=== PATIENT | female | born 1945 | race Caucasian/White ===

== ENCOUNTER 2016-11-12 12:49 | Observation (INO) ==
[2016-11-12] MEDS ORDERED: NITROGLYCERIN 2% OINT 1 INCH/GM PACK TOP STA (13:07)
[2016-11-12] MEDS ORDERED: METOPROLOL TARTRATE 5 MG/5 ML VIAL IV STA (13:07)
[2016-11-12] MEDS ORDERED: ASPIRIN 325 MG TABLET PO STA (13:07)
--- NOTE | 2016-11-12 13:11 | EKG Report ---
Stationary ECG Study [facility] ER Test Date: 11/12/2016 12:57:18 PM Pat Name: KARAN HSU Department: Room: Gender: F Die Turner: : 1945 Requested by: Piero Kyle Order Number: [id number] Reading MD: GHULAM CARMONA Intervals [place] Rate: 110 P: 999 IA: 0 QRS: 16 QRSD: 74 T: 55 QT: 322 QTc: 387 Interpretive Statements SUPRAVENTRICULAR TACHYCARDIA LOW QRS VOLTAGE IN CHEST LEADS ABNORMAL RHYTHM ECG Electronically Signed On 11-13-16 07:11:04 CDT by GHULAM CARMONA [id number]
--- NOTE | 2016-11-12 13:15 | Emergency Department Note ---
Giovana Steen Mantricia, am scribing for, and in the presence of, Piero Triana MD 13:11. Kamilah Steen James D, MD, personally performed the services described in this documentation, ascribed by Kenyetta Akhtar in my presence, and it is both accurate and complete 314 . Arrival - Arrival Chief Complaint: Chest Pain Stated Complaint: chest discomfort - palpitations ED Nursing Triage Note: C/O CHEST DISCOMFORT FOR DHARA ONE WEEK AGO, WORSERNING IN LAST COUPLE OF DAYS Mode of Arrival: Ambulatory Limitations: No Limitations Source: Patient Time Seen by Provider: 11/12/16 13:02 - History of Present Illness HPI Narrative: Pt is a 71 y/o female arriving to ED with c/o chest pain that onset 2 weeks ago. She states that she thinks anxiety brings on the pain. She also states that she has been diaphoretic and SOB along with abdominal pain and chills. Pt has a PMHx of HTN. She re[orts no other complaints to ED. Onset (ago): week(s) Consistency: constant Date of Last Menstrual Period: HYST Allergies/Adverse Reactions: Allergies Allergy/AdvReac Type Severity Reaction Status Date / Time latex Allergy HIVES Verified 11/23/15 10:32 prednisone Allergy RASH Verified 06/28/15 13:10 codeine AdvReac Palpitation Verified 06/28/15 13:10 s diphenhydramine AdvReac Palpitation Verified 06/28/15 13:10 [From Benadryl] s prochlorperazine AdvReac Palpitation Verified 06/28/15 13:10 [From Compazine] s propoxyphene [From Darvon] AdvReac Palpitation Verified 06/28/15 13:10 s Sulfa (Sulfonamide AdvReac BLISTER Verified 06/28/15 13:10 Antibiotics) Home Medications: Home Medications Medication Instructions Recorded Confirmed Type Metoprolol Tartrate Tab [Lopressor 25 mg PO TID 01/06/15 11/12/16 History Tab] Clorazepate Dipotassium 7.5 mg PO BID PRN 11/12/16 11/12/16 History Review of System - Review of System 12 point system: reviewed and no additional remarkable complaints except as stated - Review of System Constitutional: Present: chills, diaphoresis. Absent: fever Eyes: Absent: discharge, pain Cardiovascular: Present: chest pain, dyspnea on exertion Gastrointestinal: Present: abdominal pain. Absent: nausea, vomiting, diarrhea Musculoskeletal: Absent: arm pain, back pain, leg pain, neck pain Medical,Surgical,& Family Hx - Medical History Cardio: History of: Hypertension No history of: CAD, OR Neurology: History of: Migraine Rheumatology: History of;: Rheumatological Problems (psoriatic arthritis) Respiratory: History of: Pulmonary Embolism Gastrointestinal: History of: GERD Musculoskeletal: History of: Musculoskeletal Problems (arthritis) - Surgical History Cardiac Surgeries: Sugical HX of: Cardiac Catheterization (2014. Normal.) - Family History Family History: Reports;: Family Heart Disease Denies;: Family Cancer, Family Diabetes, Family Hypertension, Family Psychiatric Problems, Family Stroke - Social History Smoking Status: Never smoker Frequency of Alcohol Use: None Type of Drug Use: None Exam Physical Examination: GENERAL: This is a well-nourished, well-developed female in no apparent distress. VITAL SIGNS: HEENT: Head is normocephalic and atraumatic. Pupils are equally round and reactive to light. Extraocular movement are intact. Oropharynx is benign with moist mucous membranes. NECK: Neck is soft and supple without tenderness. There are no masses. There is no lymphadenopathy. LUNGS: Lungs are clear to auscultation bilaterally. Chest rises symmetrically. There is no chest wall tenderness. CV: Heart is regular rate and rhythm without murmurs, rubs, or gallops. ABDOMEN: Abdomen is soft, non-tender to palpation. There are no abnormal masses palpated. There is no organomegaly. Bowel sounds are present and active. SKIN: Skin is warm and dry. No rash. EXTREMITIES: Patient has full range of motion without tenderness. There is no pedal edema. NEUROLOGIC: Awake, alert, and oriented x4. Cranial nerves II through XII are grossly intact. There are no motorsensory deficits. PSYCHIATRIC: Normal affect. Normal mood. Vital Signs: Vital Signs Temperature 97.2 F L 11/12/16 12:50 Pulse Rate 107 H 11/12/16 12:50 Respiratory Rate 20 11/12/16 12:50 Blood Pressure 146/101 11/12/16 12:50 O2 Sat by Pulse Oximetry 94 L 11/12/16 12:50 Course - Consultations Consultation #1: Discussed with cardiology. Patient will be admitted to rule out OR. Time: 14:17 Results - Labs CBC & BMP: 11/12/16 13:23 11/12/16 13:23 Lab Results: I have reviewed the patients labs Labs: Laboratory Tests 07/12/15 11/12/16 05:49 13:23 Troponin I < 0.015 Lipase 288.0 - EKG EKG results: interpreted by ERMD - Impressions EKG: Sinus tachycardia with a rate of 110, nonspecific ST-T wave changes, low voltage QRS. - Diagnostic Findings Procedure: Chest x-ray: image reviewed by me (No cardiomegaly, no infiltrates.)
[2016-11-12 13:31] LABS: Basophils # 0.1 10*3/uL (0.0-0.2); Basophils % 0.5 % (0.0-0.8); Eosinophils # 0.1 10*3/uL (0.0-0.87); Eosinophils % 1.2 % (0.00-10.9); Hematocrit 44.9 VOL% (35.7-47.0); Hemoglobin 15.2 GM/DL (12.0-16.0); Immature Granulocytes % 0.3 %; Immature Granulocytes Absolute 0.03 #; Lymphocytes # 2.9 10*3/uL (1.4-4.0); Lymphocytes % 28.7 % (21.3-54.2); Mean Corpuscular HGB Conc 33.9 GM/DL (32-36); Mean Corpuscular Hemoglobin 32 PG (27-34); Mean Corpuscular Volume 94.7 FL (87-102); Mean Platelet Volume 10.2 FL (9.6-12.0); Monocytes # 0.7 10*3/uL (0.11-0.8); Monocytes % 6.7 % (1.7-12.7); Neutrophils # 6.4 10*3/uL (1.4-7.4); Neutrophils % 62.6 % (38.7-73.9); Platelet Count 243 T/CUMM (130-400); Red Blood Count 4.74 MC/CUMM (3.8-5.5); Red Cell Distribution Width 12.2 % (9.3-17.3); White Blood Count 10.2 T/CUMM (4-12)
[2016-11-12] MEDS ORDERED: METOPROLOL TARTRATE 5 MG/5 ML VIAL IV ONE (13:39)
[2016-11-12] MEDS ORDERED: ASPIRIN 325 MG TABLET ONE (13:39)
[2016-11-12] MEDS ORDERED: NITROGLYCERIN 2% OINT 1 INCH/GM PACK TOP ONE (13:39)
[2016-11-12 13:40] LABS: Partial Thromboplastin Time 30.1 SECS (0-40)
--- NOTE | 2016-11-12 13:56 | XRay Report ---
XR chest 2V Date: 11/12/2016 1:08 PM History: Chest pain Comparison: 06/30/2015 Technique: PA and lateral chest Findings: The heart is normal in size with calcification in the aortic knob. 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 Stable mediastinum and osseous structures. Impression: No acute cardiopulmonary pathology identified. PROCEDURE INTERPRETED AT [facility] DEPARTMENT OF RADIOLOGY Final Report Signed by: Dr. Martha Dave
[2016-11-12 14:07] LABS: Albumin 3.9 G/DL (3.4-5.0); Bilirubin,Total 0.5 MG/DL (0.2-1.0); Calcium 9.6 MG/DL (8.5-10.1); Osmolality,Calculated 285.1 MOS/KG (273-304); Potassium 4.4 MMOL/L (3.5-5.1); Total Protein 7.8 G/DL (6.4-8.3)
[2016-11-12 14:34] LABS: Apearance,Urine CLEAR (Clear); Bacteria,Urine Occasional /HPF (Few); Bilirubin,Urine Negative (Negative); Blood, Urine Negative (Negative); Glucose,Urine (UA) Negative (Negative); Ketones,Urine Negative (Negative); Mucus,Urine Few /LPF (Occasional); Nitrite,Urine Negative (Negative); Protein,Urine Negative; RBC,Urine 3 /HPF (0-4); Squamous Epithelial Cell,Urine Occasional /HPF (0-10); Urine Color Yellow (Yellow); Urine Urobilinogen < 2.0 EU/DL (0.2-1.0); WBC,Urine 26 /HPF (0-6)
[2016-11-12 14:38] LABS: Barbiturates Screen,Urine Negative (Negative); Benzodiazepines Screen,Urine Negative (Negative); Cannabinoid Screen,Urine Negative (Negative); Opiate Screen,Urine Negative (Negative); Phencyclidine Screen,Urine Negative (Negative)
--- NOTE | 2016-11-12 15:37 | Cardiology History & Physical ---
<Denise France - Last Filed: 11/12/16 16:33> Assessment and Plan - Time spent with patient Time spent with patient: Greater than 30 minutes (1) Atypical chest pain Status: Acute Assessment and plan: SEE PLAN OF CARE LISTED BELOW Current Visit: Yes (2) Palpitations Status: Acute Assessment and plan: SEE PLAN OF CARE LISTED BELOW Current Visit: Yes (3) Abdominal pain Status: Acute Assessment and plan: SEE PLAN OF CARE LISTED BELOW Current Visit: Yes (4) History of pulmonary embolus (PE) Status: Chronic Assessment and plan: SEE PLAN OF CARE LISTED BELOW Current Visit: No (5) Hypertension Status: Chronic Assessment and plan: SEE PLAN OF CARE LISTED BELOW Current Visit: Yes (6) UTI (urinary tract infection) Status: Acute Assessment and plan: SEE PLAN OF CARE LISTED BELOW Current Visit: Yes History of Present Illness Chief complaint: Chest discomfort 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 Lopez Ms. Holland is a 71 year old female without known history of coronary artery disease, routinely followed by Dr. Tanya Lane. Patient presented to the emergency department with complaints of palpitations and midsternal chest discomfort. Patient has cardiac risk factors significant for hypertension, advanced age, sedentary lifestyle and family history of coronary artery disease and (mother). Patient has past medical history of palpitations, pulmonary embolism and DVT. In the past, she was anticoagulated with warfarin. However, this has been discontinued now for 3 years. She is a lifetime non-smoker. She reports that she has had 2 heart catheterizations in the past. Her most recent heart catheterization was performed November 2013. At that time she had angiographically normal left dominant coronary arteries, normal resting hemodynamics with mild pulmonary hypertension. She last followed up in the cardiology clinic April 2016. At that time she was without complaints. Patient was in her usual state of health until approximately 2 weeks ago when she began experiencing mild chest discomfort. She describes this as a mild midsternal gnawing/aching pain. Nonradiating. This is not associated with shortness of breath, diaphoresis or vomiting. Patient reports that this has been ongoing now for 2 weeks, waxing and waning in intensity. She reports that chest discomfort worsens after meals. Associated with mild nausea. She denies any exertional component to her chest discomfort. Unable to identify any other specific alleviating or aggravating factors. She denies any significant change in her breathing pattern. Denies dyspnea on exertion as well as exercise intolerance. She confirms heart racing and palpitations that began yesterday. She tells me that she has had problems with palpitations for several years. She takes a beta-quique at home for this. Currently, she takes metoprolol tartrate 25 mg every a.m. and 37.5 mg every p.m. She has been compliant with this. This morning, she felt that she should be further evaluated in the emergency department. Upon arrival to the emergency department, she received nitroglycerin. She reports that this did not help relieve her chest discomfort. Patient has now been admitted under cardiology's service and will be housed on the telemetry unit. We will cycle cardiac biomarkers and EKGs in order to rule patient out for [place]. Of note, she also reports right-sided abdominal pain and mild nausea that occurs after meals. She tells me that she has had gallbladder problems in the remote past and has been seen by Dr. Donovan. She has been told by Dr. Donovan that she has a borderline gallbladder and may require cholecystectomy in the future. At this point, I will add PPI and order gallbladder ultrasound in order to reevaluate patient's gallbladder status. This may be contributing to both abdominal and her atypical chest pain. Patient was seen and examined in the emergency department. Upon arrival to the emergency department, EKG revealed sinus tachycardia with heart rate of 110. She received metoprolol IV in the emergency department patient is now normal sinus rhythm with heart rates in the 70s. First troponin was negative. EKG does not reveal any ischemic changes. Chest x-ray did not reveal any acute cardiopulmonary processes. At this point, we will admit patient to the telemetry unit for rule out. We will monitor patient's cardiac biomarkers and EKGs. Will further discuss with Dr. Muller and await his recommendations. ASSESSMENT/PLAN : 1. ATYPICAL CHEST PAIN - Patient's chest pain is very atypical in nature. Patient does not have known history of coronary artery disease. Do not feel as though this is ACS. Although patient has had ongoing chest pain for 2 weeks, cardiac biomarkers are negative. EKG does not reveal any ischemic changes. At this point, we will admit patient to the telemetry unit and cycle cardiac biomarkers and EKG. I will also add gi cocktail, baby aspirin and PPI. I will further discuss this with Dr. Muller and await his recommendations. 2. HYPERTENSION - I will reinitiate patient's home medications and make adjustments as needed throughout her hospitalization. 3. UTI - Urinalysis reveals acute UTI. Urine culture has been ordered. I will add Cipro. 4. ABDOMINAL PAIN - She reports that she has mild abdominal pain associated with nausea after meals. She tells me that she has had gallbladder problems in the remote past and has been seen by Dr. Donovan. She has been told by Dr. Donovan that she has a borderline gallbladder and may require cholecystectomy in the future. At this point, I will add PPI and order gallbladder ultrasound in order to reevaluate patient's gallbladder status. This may be contributing to both abdominal and her atypical chest pain. 5. PALPITATIONS - Upon arrival to emergency department, patient EKG revealed sinus tachycardia with heart rate of 110. She received metoprolol IV in the emergency department and patient is now in normal sinus rhythm with heart rates in the 70s. At this point, we will admit patient to the telemetry unit and monitor her on the range master. Continue beta-blockade and adjust as needed throughout her hospital stay. Will add TSH to her lab draw. Check electrolytes. 6. HISTORY OF PE - Patient is without complaints of shortness of breath this admission. We will add d-dimer to lab draw. She reports that her Coumadin was discontinued approximately 3 years ago. Further plan and addendum to follow per Dr. Muller. Home Medications Medication Instructions Recorded Confirmed Type Metoprolol Tartrate Tab [Lopressor 25 mg PO DAILY W/BREAKFAST 01/06/15 11/12/16 History Tab] Clorazepate Dipotassium 7.5 mg PO BID PRN 11/12/16 11/12/16 History Metoprolol Tartrate 37.5 mg PO BEDTIME 11/12/16 11/12/16 History Allergies Allergy/AdvReac Type Severity Reaction Status Date / Time latex Allergy HIVES Verified 11/23/15 10:32 prednisone Allergy RASH Verified 06/28/15 13:10 codeine AdvReac Palpitation Verified 06/28/15 13:10 s diphenhydramine AdvReac Palpitation Verified 06/28/15 13:10 [From Benadryl] s prochlorperazine AdvReac Palpitation Verified 06/28/15 13:10 [From Compazine] s propoxyphene [From Darvon] AdvReac Palpitation Verified 06/28/15 13:10 s Sulfa (Sulfonamide AdvReac BLISTER Verified 06/28/15 13:10 Antibiotics) - Constitutional Constitutional: Present: fatigue. Absent: chills, fever(s), frequent falls, weakness, weight gain, weight loss - Cardiovascular Cardiovascular: Present: chest pain at rest, palpitations. Absent: claudication , diaphoresis, dyspnea, dyspnea on exertion, edema, radiating jaw, neck or arm pain, lightheadedness, orthopnea, PND - Respiratory Respiratory: Absent: cough, dyspnea, hemoptysis, dyspnea on exertion, wheezing, snoring, pain on inspiration, change in phlegm color - Gastrointestinal Gastrointestinal: Present: abdominal pain, bloating, dyspepsia, nausea. Absent : coffee ground emesis, constipation, hematemesis, hematochezia, loose stools, melena, vomiting - Genitourinary Genitourinary: Present: dysuria, flank pain - Endocrine Endocrine: Present: cold intolerance, fatigue Medical,Surgical,& Family Hx - Medical History Cardio: History of: Hypertension, Cardiovascular Problems (Palpitations) No history of: CAD, [place] Neurology: History of: Migraine Rheumatology: History of;: Rheumatological Problems (psoriatic arthritis) Respiratory: History of: Pulmonary Embolism Gastrointestinal: History of: GERD Musculoskeletal: History of: Musculoskeletal Problems (arthritis) Other: History of: Miscellaneous Medical Problems (DVT) - Surgical History Cardiac Surgeries: Sugical HX of: Cardiac Catheterization (2014. Normal.) - Family History Family History: Reports;: Family Heart Disease Denies;: Family Cancer, Family Diabetes, Family Hypertension, Family Psychiatric Problems, Family Stroke - Social History Smoking Status: Never smoker Frequency of Alcohol Use: None Type of Drug Use: None Marital Status: Lives With:: Spouse Functional capacity: independent ambulation Cardiology Physical Exam - Constitutional Vitals: Vital Signs Temp Pulse Resp BP Pulse Ox 97.2 F L 107 H 20 146/101 94 L 11/12/16 12:50 11/12/16 12:50 11/12/16 12:50 11/12/16 12:50 11/12/16 12:50 Intake and Output 11/11/16 11/12/16 11/12/16 22:59 06:59 14:59 Other: Weight 170 lb Patient Weight 11/13/16 06:59 Weight 170 lb Exam: General: Appears well with no apparent distress. Pleasant and cooperative. Appears comfortable. HEENT: PERRL, normocephalic, atraumatic. Mucous membranes moist. No jaundice noted. Conjunctiva moist and clear, sclerae anicteric Neck: No JVD/HJR, no thyromegaly or lymphadenopathy noted. No carotid bruit appreciated Cardiac: Regular rate and rhythm. No murmur rub or gallop. Lungs: Clear to auscultation without accessory muscle use to assist the respiratory pattern. Not requiring oxygen. Abdomen: Soft, bowel sounds normoactive. Nontender and nondistended. No abdominal bruit or thrill noted. No masses noted. Extremities: No clubbing, cyanosis noted. No edema noted. Upper extremity pulses 2+. Lower extremity pulses 2+. Capillary refill less than 3 seconds. Skin: No unusual lesions or rashes. No skin breakdown appreciated. Neuro: Awake, alert and oriented 3. Moves all extremities well without hemiparesis or paralysis. No essential tremor is appreciated. Result/EKG - Labs CBC & BMP: 11/12/16 13:23 11/12/16 13:23 Lab Results: I have reviewed the past 24 hour labs Labs: Laboratory Results - last 24 hr 11/12/16 11/12/16 11/12/16 13:23 13:23 13:23 WBC 10.2 RBC 4.74 Hgb 15.2 Hct 44.9 MCV 94.7 MCH 32 MCHC 33.9 RDW 12.2 Plt Count 243 MPV 10.2 Neut % (Auto) 62.6 Lymph % (Auto) 28.7 Harris % (Auto) 6.7 Eos % (Auto) 1.2 Baso % (Auto) 0.5 Neut # (Auto) 6.4 Lymph # (Auto) 2.9 Harris # (Auto) 0.7 Eos # (Auto) 0.1 Baso # (Auto) 0.1 Immature Gran % 0.3 Nucleated RBC % 0.0 Immature Gran # 0.03 Nucleated RBCs # 0.00 INR 1.0 PT Patient/Control Mix 10.0 Circ Anticoag PTT 30.1 Sodium 142 Potassium 4.4 Chloride 105 Carbon Dioxide 30 Anion Gap 11.4 BUN 18 Creatinine 0.90 GFR Calculation 72 BUN/Creatinine Ratio 20.00 Glucose 115 H Calculated Osmolality 285.1 Calcium 9.6 Total Bilirubin 0.50 AST 21 ALT 27 Alkaline Phosphatase 143 H Troponin I Total Protein 7.8 Albumin 3.9 Globulin 3.9 H Albumin/Globulin Ratio 1.0 L Lipase 289.0 Urine Color Urine Appearance Urine pH Ur Specific [place] Urine Protein Urine Glucose (UA) Urine Ketones Urine Blood Urine Nitrate Urine Bilirubin Urine Urobilinogen Urine Leukocytes Urine RBC Urine WBC Ur Squamous Epith Cells Urine Bacteria Urine Mucus Ur Culture Indicated? Urine Opiates Screen Ur Barbiturates Screen Ur Phencyclidine Scrn U Amphetamine/Methamph U Benzodiazepines Scrn U Cocaine Metab Screen U Cannabinoids Screen 11/12/16 11/12/16 11/12/16 13:23 14:28 14:28 WBC RBC Hgb Hct MCV MCH MCHC RDW Plt Count MPV Neut % (Auto) Lymph % (Auto) Harris % (Auto) Eos % (Auto) Baso % (Auto) Neut # (Auto) Lymph # (Auto) Harris # (Auto) Eos # (Auto) Baso # (Auto) Immature Gran % Nucleated RBC % Immature Gran # Nucleated RBCs # INR PT Patient/Control Mix Circ Anticoag PTT Sodium Potassium Chloride Carbon Dioxide Anion Gap BUN Creatinine GFR Calculation BUN/Creatinine Ratio Glucose Calculated Osmolality Calcium Total Bilirubin AST ALT Alkaline Phosphatase Troponin I < 0.015 Total Protein Albumin Globulin Albumin/Globulin Ratio Lipase Urine Color Yellow Urine Appearance Clear Urine pH 5.0 Ur Specific [place] 1.020 Urine Protein Negative Urine Glucose (UA) Negative Urine Ketones Negative Urine Blood Negative Urine Nitrate Negative Urine Bilirubin Negative Urine Urobilinogen < 2.0 H Urine Leukocytes Large H Urine RBC 3 Urine WBC 26 Ur Squamous Epith Cells Occasional Urine Bacteria Occasional Urine Mucus Few Ur Culture Indicated? Results to follow Urine Opiates Screen Negative Ur Barbiturates Screen Negative Ur Phencyclidine Scrn Negative U Amphetamine/Methamph Negative U Benzodiazepines Scrn Negative U Cocaine Metab Screen Negative U Cannabinoids Screen Negative - EKG EKG results: interpreted by me, sinus rhythm EKG shows: tachycardia <Rodney Muller - Last Filed: 11/13/16 10:24> History of Present Illness History of present illness: Ms. Holland is a 71 year old female Cardiology Physical Exam - Constitutional Vitals: Vital Signs Temp Pulse Resp BP Pulse Ox 98.0 F 74 18 123/68 95 11/13/16 07:29 11/13/16 07:29 11/13/16 07:29 11/13/16 07:29 11/13/16 07:29 Intake and Output 11/12/16 11/13/16 11/13/16 23:59 07:59 15:59 Intake Total 240 / 240 Output Total 300 / 300 Balance -60 / -60 Intake: Oral 240 / 240 Output: Urine 300 / 300 Other: # Voids 2 Weight 77.111 kg 77.111 kg Patient Weight 11/13/16 23:59 Weight 77.111 kg Result/EKG - Labs CBC & BMP: 11/13/16 01:01 11/13/16 01:01 Labs: Laboratory Results - last 24 hr 11/12/16 11/12/16 11/12/16 13:23 13:23 13:23 WBC 10.2 RBC 4.74 Hgb 15.2 Hct 44.9 MCV 94.7 MCH 32 MCHC 33.9 RDW 12.2 Plt Count 243 MPV 10.2 Neut % (Auto) 62.6 Lymph % (Auto) 28.7 Harris % (Auto) 6.7 Eos % (Auto) 1.2 Baso % (Auto) 0.5 Neut # (Auto) 6.4 Lymph # (Auto) 2.9 Harris # (Auto) 0.7 Eos # (Auto) 0.1 Baso # (Auto) 0.1 Immature Gran % 0.3 Nucleated RBC % 0.0 Immature Gran # 0.03 Nucleated RBCs # 0.00 INR 1.0 PT Patient/Control Mix 10.0 D-Dimer, Quantitative Circ Anticoag PTT 30.1 Sodium 142 Potassium 4.4 Chloride 105 Carbon Dioxide 30 Anion Gap 11.4 BUN 18 Creatinine 0.90 GFR Calculation 72 BUN/Creatinine Ratio 20.00 Glucose 115 H Calculated Osmolality 285.1 Calcium 9.6 Magnesium Total Bilirubin 0.50 AST 21 ALT 27 Alkaline Phosphatase 143 H Total Creatine Kinase CK-MB (CK-2) Troponin I Total Protein 7.8 Albumin 3.9 Globulin 3.9 H Albumin/Globulin Ratio 1.0 L Triglycerides Cholesterol LDL Cholesterol VLDL Cholesterol HDL Cholesterol Heart Disease Risk Ratio Lipase 289.0 TSH 3rd Generation Urine Color Urine Appearance Urine pH Ur Specific [place] Urine Protein Urine Glucose (UA) Urine Ketones Urine Blood Urine Nitrate Urine Bilirubin Urine Urobilinogen Urine Leukocytes Urine RBC Urine WBC Ur Squamous Epith Cells Urine Bacteria Urine Mucus Ur Culture Indicated? Urine Opiates Screen Ur Barbiturates Screen Ur Phencyclidine Scrn U Amphetamine/Methamph U Benzodiazepines Scrn U Cocaine Metab Screen U Cannabinoids Screen 11/12/16 11/12/16 11/12/16 13:23 13:23 13:23 WBC RBC Hgb Hct MCV MCH MCHC RDW Plt Count MPV Neut % (Auto) Lymph % (Auto) Harris % (Auto) Eos % (Auto) Baso % (Auto) Neut # (Auto) Lymph # (Auto) Harris # (Auto) Eos # (Auto) Baso # (Auto) Immature Gran % Nucleated RBC % Immature Gran # Nucleated RBCs # INR PT Patient/Control Mix D-Dimer, Quantitative 0.6 Circ Anticoag PTT Sodium Potassium Chloride Carbon Dioxide Anion Gap BUN Creatinine GFR Calculation BUN/Creatinine Ratio Glucose Calculated Osmolality Calcium Magnesium Total Bilirubin AST ALT Alkaline Phosphatase Total Creatine Kinase CK-MB (CK-2) Troponin I < 0.015 Total Protein Albumin Globulin Albumin/Globulin Ratio Triglycerides Cholesterol LDL Cholesterol VLDL Cholesterol HDL Cholesterol Heart Disease Risk Ratio Lipase TSH 3rd Generation 1.810 Urine Color Urine Appearance Urine pH Ur Specific [place] Urine Protein Urine Glucose (UA) Urine Ketones Urine Blood Urine Nitrate Urine Bilirubin Urine Urobilinogen Urine Leukocytes Urine RBC Urine WBC Ur Squamous Epith Cells Urine Bacteria Urine Mucus Ur Culture Indicated? Urine Opiates Screen Ur Barbiturates Screen Ur Phencyclidine Scrn U Amphetamine/Methamph U Benzodiazepines Scrn U Cocaine Metab Screen U Cannabinoids Screen 11/12/16 11/12/16 11/12/16 14:28 14:28 18:45 WBC RBC Hgb Hct MCV MCH MCHC RDW Plt Count MPV Neut % (Auto) Lymph % (Auto) Harris % (Auto) Eos % (Auto) Baso % (Auto) Neut # (Auto) Lymph # (Auto) Harris # (Auto) Eos # (Auto) Baso # (Auto) Immature Gran % Nucleated RBC % Immature Gran # Nucleated RBCs # INR PT Patient/Control Mix D-Dimer, Quantitative Circ Anticoag PTT Sodium Potassium Chloride Carbon Dioxide Anion Gap BUN Creatinine GFR Calculation BUN/Creatinine Ratio Glucose Calculated Osmolality Calcium Magnesium Total Bilirubin AST ALT Alkaline Phosphatase Total Creatine Kinase 80 CK-MB (CK-2) 1.3 Troponin I 0.016 Total Protein Albumin Globulin Albumin/Globulin Ratio Triglycerides Cholesterol LDL Cholesterol VLDL Cholesterol HDL Cholesterol Heart Disease Risk Ratio Lipase TSH 3rd Generation Urine Color Yellow Urine Appearance Clear Urine pH 5.0 Ur Specific [place] 1.020 Urine Protein Negative Urine Glucose (UA) Negative Urine Ketones Negative Urine Blood Negative Urine Nitrate Negative Urine Bilirubin Negative Urine Urobilinogen < 2.0 H Urine Leukocytes Large H Urine RBC 3 Urine WBC 26 Ur Squamous Epith Cells Occasional Urine Bacteria Occasional Urine Mucus Few Ur Culture Indicated? Results to follow Urine Opiates Screen Negative Ur Barbiturates Screen Negative Ur Phencyclidine Scrn Negative U Amphetamine/Methamph Negative U Benzodiazepines Scrn Negative U Cocaine Metab Screen Negative U Cannabinoids Screen Negative 11/13/16 11/13/16 11/13/16 01:01 01:01 01:01 WBC 8.8 RBC 4.11 Hgb 13.2 D Hct 39.2 MCV 95.4 MCH 32 MCHC 33.7 RDW 12.5 Plt Count 201 MPV 10.7 Neut % (Auto) 51.7 Lymph % (Auto) 36.4 Harris % (Auto) 8.9 Eos % (Auto) 2.0 Baso % (Auto) 0.7 Neut # (Auto) 4.6 Lymph # (Auto) 3.2 Harris # (Auto) 0.8 Eos # (Auto) 0.2 Baso # (Auto) 0.1 Immature Gran % 0.3 Nucleated RBC % 0.0 Immature Gran # 0.03 Nucleated RBCs # 0.00 INR PT Patient/Control Mix D-Dimer, Quantitative Circ Anticoag PTT Sodium 144 Potassium 3.9 Chloride 109 H Carbon Dioxide 27 Anion Gap 11.9 BUN 17 Creatinine 0.80 GFR Calculation 83 BUN/Creatinine Ratio 21.00 H Glucose 86 Calculated Osmolality 286.8 Calcium 8.3 L Magnesium 2.2 Total Bilirubin AST ALT Alkaline Phosphatase Total Creatine Kinase 63 D CK-MB (CK-2) 1.1 Troponin I 0.017 Total Protein Albumin Globulin Albumin/Globulin Ratio Triglycerides 112 Cholesterol 166 LDL Cholesterol 101.0 VLDL Cholesterol 22.4 HDL Cholesterol 49 Heart Disease Risk Ratio 3.39 Lipase TSH 3rd Generation Urine Color Urine Appearance Urine pH Ur Specific [place] Urine Protein Urine Glucose (UA) Urine Ketones Urine Blood Urine Nitrate Urine Bilirubin Urine Urobilinogen Urine Leukocytes Urine RBC Urine WBC Ur Squamous Epith Cells Urine Bacteria Urine Mucus Ur Culture Indicated? Urine Opiates Screen Ur Barbiturates Screen Ur Phencyclidine Scrn U Amphetamine/Methamph U Benzodiazepines Scrn U Cocaine Metab Screen U Cannabinoids Screen 06/14/17 03:42 WBC RBC Hgb Hct MCV MCH MCHC RDW Plt Count MPV Neut % (Auto) Lymph % (Auto) Harris % (Auto) Eos % (Auto) Baso % (Auto) Neut # (Auto) Lymph # (Auto) Harris # (Auto) Eos # (Auto) Baso # (Auto) Immature Gran % Nucleated RBC % Immature Gran # Nucleated RBCs # INR PT Patient/Control Mix D-Dimer, Quantitative Circ Anticoag PTT Sodium Potassium Chloride Carbon Dioxide Anion Gap BUN Creatinine GFR Calculation BUN/Creatinine Ratio Glucose Calculated Osmolality Calcium Magnesium Total Bilirubin AST ALT Alkaline Phosphatase Total Creatine Kinase 64 CK-MB (CK-2) 1.4 Troponin I < 0.015 Total Protein Albumin Globulin Albumin/Globulin Ratio Triglycerides Cholesterol LDL Cholesterol VLDL Cholesterol HDL Cholesterol Heart Disease Risk Ratio Lipase TSH 3rd Generation Urine Color Urine Appearance Urine pH Ur Specific [place] Urine Protein Urine Glucose (UA) Urine Ketones Urine Blood Urine Nitrate Urine Bilirubin Urine Urobilinogen Urine Leukocytes Urine RBC Urine WBC Ur Squamous Epith Cells Urine Bacteria Urine Mucus Ur Culture Indicated? Urine Opiates Screen Ur Barbiturates Screen Ur Phencyclidine Scrn U Amphetamine/Methamph U Benzodiazepines Scrn U Cocaine Metab Screen U Cannabinoids Screen
[2016-11-12] MEDS ORDERED: DOCUSATE SODIUM 100 MG CAPSULE PO PRN (16:11)
[2016-11-12] MEDS ORDERED: MAGNESIUM SULF RIDER 4 GM in PREMIX 1 EACH IV PRN (16:11)
[2016-11-12] MEDS ORDERED: MAGNESIUM SULF RIDER 2 GM in PREMIX 1 EACH IV PRN (16:11)
[2016-11-12] MEDS ORDERED: ONDANSETRON 4 MG/2 ML VIAL IV PRN (16:11)
[2016-11-12] MEDS ORDERED: ZALEPLON 5 MG CAPSULE PO PRN (16:11)
--- NOTE | 2016-11-12 16:25 | Ultrasound Report ---
Exam: US gallbladder Date:11/12/2016 3:32 PM Indication: Abdominal pain Comparison: 07/12/2015 Findings: Liver: 13.8 cm. No focal abnormalities. The hepatic and portal veins are patent. Gallbladder: Normal size shape and configuration without stones or sludge or debris or wall thickening CBD: 2.7 mm Pancreas: Poorly visualized Kidneys Right kidney: 11.0 x 5.2 x 4.4 cm. No hydronephrosis perinephric fluid collections or focal mass. Ascites: None Impression: 1. Normal right upper quadrant sonography with obscuration of the pancreas on today's exam Ultrasound images were stored and captured PROCEDURE INTERPRETED AT [facility] DEPARTMENT OF RADIOLOGY Final Report Signed by: Dr. Jermaine Gentile
[2016-11-12] MEDS ORDERED: ALUM/MAG/SIMETH/LIDO VISC 1:1 30 ML BOTTLE PO STA (16:34)
[2016-11-12] MEDS: PANTOPRAZOLE 40 MG TABLET PO SCH (18:17)
[2016-11-12] MEDS: ACETAMINOPHEN 325 MG TABLET PO PRN (19:35)
[2016-11-12 20:14] LABS: Troponin I Only 0.016 NG/ML (0.00-0.045)
[2016-11-12] MEDS: CIPROFLOXACIN 500 MG TABLET PO SCH (20:26)
[2016-11-12] MEDS ORDERED: ENOXAPARIN 40 MG/0.4 ML SYRINGE SUBCUT SCH (21:00)
[2016-11-12] MEDS ORDERED: METOPROLOL TARTRATE 25 MG TABLET PO SCH (21:00)
[2016-11-13 01:30] LABS: Basophils # 0.1 10*3/uL (0.0-0.2); Basophils % 0.7 % (0.0-0.8); Eosinophils # 0.2 10*3/uL (0.0-0.87); Hematocrit 39.2 VOL% (35.7-47.0); Hemoglobin 13.2 GM/DL (12.0-16.0); Immature Granulocytes % 0.3 %; Immature Granulocytes Absolute 0.03 #; Lymphocytes # 3.2 10*3/uL (1.4-4.0); Lymphocytes % 36.4 % (21.3-54.2); Mean Corpuscular HGB Conc 33.7 GM/DL (32-36); Mean Corpuscular Hemoglobin 32 PG (27-34); Mean Corpuscular Volume 95.4 FL (87-102); Mean Platelet Volume 10.7 FL (9.6-12.0); Monocytes # 0.8 10*3/uL (0.11-0.8); Monocytes % 8.9 % (1.7-12.7); Neutrophils # 4.6 10*3/uL (1.4-7.4); Neutrophils % 51.7 % (38.7-73.9); Platelet Count 201 T/CUMM (130-400); Red Blood Count 4.11 MC/CUMM (3.8-5.5); Red Cell Distribution Width 12.5 % (9.3-17.3); White Blood Count 8.8 T/CUMM (4-12)
[2016-11-13 02:28] LABS: Troponin I Only 0.017 NG/ML (0.00-0.045)
[2016-11-13 02:44] LABS: Calcium 8.3 MG/DL (8.5-10.1); Magnesium 2.2 MG/DL (1.8-2.4); Osmolality,Calculated 286.8 MOS/KG (273-304); Potassium 3.9 MMOL/L (3.5-5.1); Risk Ratio 3.39; VLDL CHOLESTEROL 22.4 MG/DL
[2016-11-13 04:47] LABS: Troponin I Only < 0.015 NG/ML (0.00-0.045)
[2016-11-13] MEDS: ACETAMINOPHEN 325 MG TABLET PO PRN (05:24)
--- NOTE | 2016-11-13 07:25 | EKG Report ---
Stationary ECG Study [facility] Test Date: 11/13/2016 7:26:37 AM Pat Name: KARAN HSU Department: Room: 284 Gender: F Tv Technician: : 1945 Requested by: Denise France Order Number: [id number] Reading MD: GHULAM CARMONA Intervals Golden Rate: 65 P: 30 OK: 174 QRS: 32 QRSD: 89 T: 41 QT: 399 QTc: 411 Interpretive Statements SINUS RHYTHM LOW QRS VOLTAGE IN PRECORDIAL LEADS Electronically Signed On 11-13-16 08:15:49 CDT by GHULAM CARMONA [email or web address]
[2016-11-13] MEDS ORDERED: METOPROLOL TARTRATE 25 MG TABLET PO SCH (08:00)
[2016-11-13] MEDS ORDERED: ASPIRIN EC 81 MG TABLET PO SCH (09:00)
[2016-11-13] MEDS: CIPROFLOXACIN 500 MG TABLET PO SCH (09:03)
[2016-11-13] MEDS: PANTOPRAZOLE 40 MG TABLET PO SCH (09:03)
--- NOTE | 2016-11-13 10:19 | Discharge Summary ---
Hospital Course - Hospital Course Hospital Course: Traffic Control Technician: Dr. Lane PCP: Dr. Lopez Ms. Holland is a 71 year old female without a known history of coronary artery disease, routinely followed by Dr. Tanya Lane. Patient has cardiac risk factors significant for hypertension, advanced age, sedentary lifestyle and family history of coronary artery disease and (mother). Patient has past medical history of palpitations, pulmonary embolism and DVT. In the past, she was anticoagulated with warfarin. However, this has been discontinued now for 3 years. She is a lifetime non-smoker. She reports that she has had 2 heart catheterizations in the past. Her most recent heart catheterization was performed November 2013. At that time she had angiographically normal left dominant coronary arteries, normal resting hemodynamics with mild pulmonary hypertension. She last followed up in the cardiology clinic April 2016. At that time she was without complaints. Patient presented to the emergency department with complaints of palpitations and atypical chest pain. Upon arrival to emergency department, she was noted to be in sinus tach with heart rate of 110. She received a one-time dose of IV metoprolol in the emergency department. She was admitted to the telemetry unit in order to rule out for myocardial infarction. Patient's cardiac biomarkers are negative 4. EKG was without acute changes. Patient's symptomology thought to be secondary to mild anxiety as patient reports that she has been under stress. At this point, we will continue patient's Tranxene and add low- dose Zoloft at discharge. Patient also had complaints of abdominal pain, nausea and polyuria/dysuria. Urinalysis revealed UTI, Cipro was initiated. She will be given a prescription for Cipro upon discharge. She had a gallbladder ultrasound this admission which was normal. Telemetry was reviewed. Patient was without arrhythmias and/or PVCs. Palpitations seem to be a chronic problem for her. At this point, we will continue her current dose of beta-quique and defer further management/workup of this to Dr. Lane. Patient may benefit from Holter or event monitor. This morning, patient is without complaints. She reports that she feels much better. She denies chest pain, heaviness and tightness. Also denies heart racing and palpitations. She is anxious for discharge home. Having felt that patient has met maximal medical therapy, she will be discharged home in stable condition. She already has a follow-up appointment scheduled with Dr. Ariana tomorrow, she will keep this appointment. We will discharge patient home on all of her preadmission medications with the addition of Cipro, PPI and Zoloft. Discharge instructions and discharge medications were reviewed with the patient. She verbalized understanding. - Time spent with patient Time with patient DS: Greater than 30 minutes Diagnosis - Discharge Diagnosis (1) Atypical chest pain Status: Resolved (2) Palpitations Status: Chronic (3) Abdominal pain Status: Resolved (4) History of pulmonary embolus (PE) Status: Chronic (5) Hypertension Status: Chronic (6) UTI (urinary tract infection) Status: Acute (7) Anxiety Status: Acute Specialty Discharge - Follow Up or Referrals Follow up with: Tanya Lane DO [Physician] - (Patient will keep follow-up appointment Dr. Lane tomorrow.) Discharge Plan - Discharge Data Disposition: Disch To Home/Self Care Condition at Discharge: Stable Discharge Diet: heart healthy Activity: resume usual activities as tolerated Hygiene: may shower Weight Bearing at Discharge: weight bear as tolerated Driving: not until seen by doctor Contact your physician if you experience:: fever over 101, Difficulty voiding, Redness or swelling, Nausea/Vomiting, Shortness of breath, Bleeding, pain uncontrolled by pain medications - Discharge Medications New Aspirin EC Tab 81 mg PO DAILY #30 tablet Pantoprazole Tab [Protonix Tab] 40 mg PO DAILY #30 tablet Sertraline [Zoloft] 25 mg PO BEDTIME #30 tablet Ciprofloxacin Tab [Cipro Tab] 500 mg PO BID #12 tablet Continue Metoprolol Tartrate Tab [Lopressor Tab] 25 mg PO DAILY W/BREAKFAST Clorazepate Dipotassium 7.5 mg PO BID PRN PRN Reason: Anxiety Metoprolol Tartrate 37.5 mg PO BEDTIME - Follow Up or Referral - Forms/Instructions Exam - Constitutional Vitals: Period Temp Pulse Resp BP Sys/Asif Pulse Ox Last 24 Hr 96.9 F-98.0 F 60-107 16-20 95-146/55-101 94-97 Exam: General: Appears well with no apparent distress. Pleasant and cooperative. Appears comfortable. HEENT: PERRL, normocephalic, atraumatic. Mucous membranes moist. No jaundice noted. Conjunctiva moist and clear, sclerae anicteric Neck: No JVD/HJR, no thyromegaly or lymphadenopathy noted. No carotid bruit appreciated Cardiac: Regular rate and rhythm. No murmur rub or gallop. Lungs: Clear to auscultation without accessory muscle use to assist the respiratory pattern. Not requiring oxygen. Abdomen: Soft, bowel sounds normoactive. Nontender and nondistended. No abdominal bruit or thrill noted. No masses noted. Extremities: No clubbing, cyanosis noted. No edema noted. Upper extremity pulses 2+. Lower extremity pulses 2+. Capillary refill less than 3 seconds. Skin: No unusual lesions or rashes. No skin breakdown appreciated. Neuro: Awake, alert and oriented 3. Moves all extremities well without hemiparesis or paralysis. No essential tremor is appreciated. Discharge Results Procedures and tests throughout hospitalization: Pending Orders 11/12/16 Urine Culture Routine 11/14/16 04:00 Basic Metabolic Panel IN AM Comp Blood Count Auto Diff IN AM Magnesium IN AM 11/15/16 04:00 Basic Metabolic Panel IN AM Comp Blood Count Auto Diff IN AM Magnesium IN AM Labs on day of discharge: Labs from last 24 hours 11/13/16 11/13/16 11/13/16 03:42 01:01 01:01 WBC 8.8 RBC 4.11 Hgb 13.2 D Hct 39.2 MCV 95.4 MCH 32 MCHC 33.7 RDW 12.5 Plt Count 201 MPV 10.7 Neut % (Auto) 51.7 Lymph % (Auto) 36.4 [place] % (Auto) 8.9 Eos % (Auto) 2.0 Baso % (Auto) 0.7 Neut # (Auto) 4.6 Lymph # (Auto) 3.2 [place] # (Auto) 0.8 Eos # (Auto) 0.2 Baso # (Auto) 0.1 Immature Gran % 0.3 Nucleated RBC % 0.0 Immature Gran # 0.03 Nucleated RBCs # 0.00 INR PT Patient/Control Mix D-Dimer, Quantitative Circ Anticoag PTT Sodium 144 Potassium 3.9 Chloride 109 H Carbon Dioxide 27 Anion Gap 11.9 BUN 17 Creatinine 0.80 GFR Calculation 83 BUN/Creatinine Ratio 21.00 H Glucose 86 Calculated Osmolality 286.8 Calcium 8.3 L Magnesium 2.2 Total Bilirubin AST ALT Alkaline Phosphatase Total Creatine Kinase 64 CK-MB (CK-2) 1.4 Troponin I < 0.015 Total Protein Albumin Globulin Albumin/Globulin Ratio Triglycerides 112 Cholesterol 166 LDL Cholesterol 101.0 VLDL Cholesterol 22.4 HDL Cholesterol 49 Heart Disease Risk Ratio 3.39 Lipase TSH 3rd Generation Urine Color Urine Appearance Urine pH Ur Specific [place] Urine Protein Urine Glucose (UA) Urine Ketones Urine Blood Urine Nitrate Urine Bilirubin Urine Urobilinogen Urine Leukocytes Urine RBC Urine WBC Ur Squamous Epith Cells Urine Bacteria Urine Mucus Ur Culture Indicated? Urine Opiates Screen Ur Barbiturates Screen Ur Phencyclidine Scrn U Amphetamine/Methamph U Benzodiazepines Scrn U Cocaine Metab Screen U Cannabinoids Screen 11/13/16 11/12/16 11/12/16 01:01 18:45 14:28 WBC RBC Hgb Hct MCV MCH MCHC RDW Plt Count MPV Neut % (Auto) Lymph % (Auto) [place] % (Auto) Eos % (Auto) Baso % (Auto) Neut # (Auto) Lymph # (Auto) [place] # (Auto) Eos # (Auto) Baso # (Auto) Immature Gran % Nucleated RBC % Immature Gran # Nucleated RBCs # INR PT Patient/Control Mix D-Dimer, Quantitative Circ Anticoag PTT Sodium Potassium Chloride Carbon Dioxide Anion Gap BUN Creatinine GFR Calculation BUN/Creatinine Ratio Glucose Calculated Osmolality Calcium Magnesium Total Bilirubin AST ALT Alkaline Phosphatase Total Creatine Kinase 63 D 80 CK-MB (CK-2) 1.1 1.3 Troponin I 0.017 0.016 Total Protein Albumin Globulin Albumin/Globulin Ratio Triglycerides Cholesterol LDL Cholesterol VLDL Cholesterol HDL Cholesterol Heart Disease Risk Ratio Lipase TSH 3rd Generation Urine Color Urine Appearance Urine pH Ur Specific [place] Urine Protein Urine Glucose (UA) Urine Ketones Urine Blood Urine Nitrate Urine Bilirubin Urine Urobilinogen Urine Leukocytes Urine RBC Urine WBC Ur Squamous Epith Cells Urine Bacteria Urine Mucus Ur Culture Indicated? Urine Opiates Screen Negative Ur Barbiturates Screen Negative Ur Phencyclidine Scrn Negative U Amphetamine/Methamph Negative U Benzodiazepines Scrn Negative U Cocaine Metab Screen Negative U Cannabinoids Screen Negative 11/12/16 11/12/16 11/12/16 14:28 13:23 13:23 WBC RBC Hgb Hct MCV MCH MCHC RDW Plt Count MPV Neut % (Auto) Lymph % (Auto) [place] % (Auto) Eos % (Auto) Baso % (Auto) Neut # (Auto) Lymph # (Auto) [place] # (Auto) Eos # (Auto) Baso # (Auto) Immature Gran % Nucleated RBC % Immature Gran # Nucleated RBCs # INR PT Patient/Control Mix D-Dimer, Quantitative 0.6 Circ Anticoag PTT Sodium Potassium Chloride Carbon Dioxide Anion Gap BUN Creatinine GFR Calculation BUN/Creatinine Ratio Glucose Calculated Osmolality Calcium Magnesium Total Bilirubin AST ALT Alkaline Phosphatase Total Creatine Kinase CK-MB (CK-2) Troponin I Total Protein Albumin Globulin Albumin/Globulin Ratio Triglycerides Cholesterol LDL Cholesterol VLDL Cholesterol HDL Cholesterol Heart Disease Risk Ratio Lipase TSH 3rd Generation 1.810 Urine Color Yellow Urine Appearance Clear Urine pH 5.0 Ur Specific [place] 1.020 Urine Protein Negative Urine Glucose (UA) Negative Urine Ketones Negative Urine Blood Negative Urine Nitrate Negative Urine Bilirubin Negative Urine Urobilinogen < 2.0 H Urine Leukocytes Large H Urine RBC 3 Urine WBC 26 Ur Squamous Epith Cells Occasional Urine Bacteria Occasional Urine Mucus Few Ur Culture Indicated? Results to follow Urine Opiates Screen Ur Barbiturates Screen Ur Phencyclidine Scrn U Amphetamine/Methamph U Benzodiazepines Scrn U Cocaine Metab Screen U Cannabinoids Screen 11/12/16 11/12/16 11/12/16 13:23 13:23 13:23 WBC 10.2 RBC 4.74 Hgb 15.2 Hct 44.9 MCV 94.7 MCH 32 MCHC 33.9 RDW 12.2 Plt Count 243 MPV 10.2 Neut % (Auto) 62.6 Lymph % (Auto) 28.7 [place] % (Auto) 6.7 Eos % (Auto) 1.2 Baso % (Auto) 0.5 Neut # (Auto) 6.4 Lymph # (Auto) 2.9 [place] # (Auto) 0.7 Eos # (Auto) 0.1 Baso # (Auto) 0.1 Immature Gran % 0.3 Nucleated RBC % 0.0 Immature Gran # 0.03 Nucleated RBCs # 0.00 INR PT Patient/Control Mix D-Dimer, Quantitative Circ Anticoag PTT Sodium 142 Potassium 4.4 Chloride 105 Carbon Dioxide 30 Anion Gap 11.4 BUN 18 Creatinine 0.90 GFR Calculation 72 BUN/Creatinine Ratio 20.00 Glucose 115 H Calculated Osmolality 285.1 Calcium 9.6 Magnesium Total Bilirubin 0.50 AST 21 ALT 27 Alkaline Phosphatase 143 H Total Creatine Kinase CK-MB (CK-2) Troponin I < 0.015 Total Protein 7.8 Albumin 3.9 Globulin 3.9 H Albumin/Globulin Ratio 1.0 L Triglycerides Cholesterol LDL Cholesterol VLDL Cholesterol HDL Cholesterol Heart Disease Risk Ratio Lipase 289.0 TSH 3rd Generation Urine Color Urine Appearance Urine pH Ur Specific [place] Urine Protein Urine Glucose (UA) Urine Ketones Urine Blood Urine Nitrate Urine Bilirubin Urine Urobilinogen Urine Leukocytes Urine RBC Urine WBC Ur Squamous Epith Cells Urine Bacteria Urine Mucus Ur Culture Indicated? Urine Opiates Screen Ur Barbiturates Screen Ur Phencyclidine Scrn U Amphetamine/Methamph U Benzodiazepines Scrn U Cocaine Metab Screen U Cannabinoids Screen 11/12/16 13:23 WBC RBC Hgb Hct MCV MCH MCHC RDW Plt Count MPV Neut % (Auto) Lymph % (Auto) [place] % (Auto) Eos % (Auto) Baso % (Auto) Neut # (Auto) Lymph # (Auto) [place] # (Auto) Eos # (Auto) Baso # (Auto) Immature Gran % Nucleated RBC % Immature Gran # Nucleated RBCs # INR 1.0 PT Patient/Control Mix 10.0 D-Dimer, Quantitative Circ Anticoag PTT 30.1 Sodium Potassium Chloride Carbon Dioxide Anion Gap BUN Creatinine GFR Calculation BUN/Creatinine Ratio Glucose Calculated Osmolality Calcium Magnesium Total Bilirubin AST ALT Alkaline Phosphatase Total Creatine Kinase CK-MB (CK-2) Troponin I Total Protein Albumin Globulin Albumin/Globulin Ratio Triglycerides Cholesterol LDL Cholesterol VLDL Cholesterol HDL Cholesterol Heart Disease Risk Ratio Lipase TSH 3rd Generation Urine Color Urine Appearance Urine pH Ur Specific [place] Urine Protein Urine Glucose (UA) Urine Ketones Urine Blood Urine Nitrate Urine Bilirubin Urine Urobilinogen Urine Leukocytes Urine RBC Urine WBC Ur Squamous Epith Cells Urine Bacteria Urine Mucus Ur Culture Indicated? Urine Opiates Screen Ur Barbiturates Screen Ur Phencyclidine Scrn U Amphetamine/Methamph U Benzodiazepines Scrn U Cocaine Metab Screen U Cannabinoids Screen Preliminary micro results at discharge 11/12/16 Unknown Urine Culture - Preliminary Urine,Voided No Growth at 24 hours. - Imaging and Cardiology Procedure: Ultrasound: report reviewed by me, X-ray: report reviewed by me DS: Provider Date of admission: 11/12/16 16:11 Primary care physician: Eldon Duffy MD Attending physician on admission: Rodney Aguirre Discharging clinician: Denise France NP Expected date of discharge: 11/13/16
--- NOTE | 2016-11-13 11:04 | Event Note ---
I have examined and reviewed Ms. Holland. She is asymptomatic and has follow-up appointment with Dr. Kang tomorrow. At this time I think she is received maximal hospital benefit. She does have some polyuria, and urinalysis suggesting UTI. Cipro was started in the hospital.
[2016-11-13 11:43] VITALS: BP 113/64
== END 2016-11-13 13:08 | disposition home or self-care (01) ==
LOC: N.ED 12:49 → N.EDINP 12:49 → N.TELEN 17:53
PROVIDERS: ADMIT Internal Medicine Cardiovascular Disease; ATTEND Internal Medicine Cardiovascular Disease

== ENCOUNTER 2017-08-13 13:50 | Observation (INO) ==
[2017-08-13] MEDS ORDERED: ASPIRIN 325 MG TABLET PO STA (14:05)
[2017-08-13] MEDS ORDERED: ASPIRIN 325 MG TABLET ONE (14:19)
[2017-08-13 15:06] LABS: Basophils # 0.1 10*3/uL (0.0-0.2); Basophils % 0.5 % (0.0-0.8); Eosinophils # 0.1 10*3/uL (0.0-0.87); Eosinophils % 0.7 % (0.00-10.9); Hematocrit 43.2 VOL% (35.7-47.0); Hemoglobin 14.4 GM/DL (12.0-16.0); Immature Granulocytes % 0.2 %; Immature Granulocytes Absolute 0.02 #; Lymphocytes % 27.3 % (21.3-54.2); Mean Corpuscular HGB Conc 33.3 GM/DL (32-36); Mean Corpuscular Hemoglobin 31 PG (27-34); Mean Corpuscular Volume 93.9 FL (87-102); Mean Platelet Volume 10.2 FL (9.6-12.0); Monocytes # 0.8 10*3/uL (0.11-0.8); Monocytes % 7.3 % (1.7-12.7); Neutrophils # 7.1 10*3/uL (1.4-7.4); Platelet Count 219 T/CUMM (130-400); Red Cell Distribution Width 12.7 % (9.3-17.3)
[2017-08-13 15:15] LABS: INR 1.9; PT Patient Result 19.5 SECS
[2017-08-13 15:53] LABS: Alanine Aminotransferase 27 U/L (13-56); Albumin 3.6 G/DL (3.4-5.0); Alkaline Phosphatase 134 U/L (45-117); Aspartate Amino Transferase 19 U/L (0-37); Bilirubin,Total < 0.39 MG/DL (0.2-1.0); Blood Urea Nitrogen 27 MG/DL (7-18); Calcium 8.7 MG/DL (8.5-10.1); Glucose 124 MG/DL (74-106); Osmolality,Calculated 284.4 MOS/KG (273-304); Potassium 3.6 MMOL/L (3.5-5.1); Sodium 140 MMOL/L (136-145); Total Protein 7.2 G/DL (6.4-8.3); Troponin I Only < 0.015 NG/ML (0.00-0.045)
[2017-08-13] MEDS ORDERED: ONDANSETRON 4 MG/2 ML VIAL IV PRN (16:30)
[2017-08-13] MEDS ORDERED: ZALEPLON 5 MG CAPSULE PO PRN (16:30)
[2017-08-13] MEDS ORDERED: ONDANSETRON 4 MG/2 ML VIAL IV ONE (20:22)
[2017-08-13] MEDS: ACETAMINOPHEN 325 MG TABLET PO PRN (20:31)
[2017-08-13] MEDS: METOPROLOL TARTRATE 25 MG TABLET PO SCH (21:37)
[2017-08-14] MEDS: ACETAMINOPHEN 325 MG TABLET PO PRN ×3 (03:24→14:51)
[2017-08-14 05:10] LABS: INR 1.9; PT Patient Result 19.6 SECS
[2017-08-14] MEDS: METOPROLOL TARTRATE 25 MG TABLET PO SCH ×3 (05:13→14:51)
[2017-08-14 05:45] LABS: Risk Ratio 3.41; VLDL CHOLESTEROL 25.6 MG/DL
[2017-08-14] MEDS ORDERED: PANTOPRAZOLE 40 MG TABLET PO SCH (09:00)
[2017-08-14] MEDS ORDERED: ASPIRIN EC 325 MG TABLET PO SCH (09:00)
[2017-08-14] MEDS ORDERED: WARFARIN 2.5 MG TABLET PO SCH (09:00)
[2017-08-14 17:25] VITALS: BP 121/58
[2017-08-14] MEDS ORDERED: METOPROLOL SUCCINATE XL 25 MG TABLET PO SCH (21:00)
== END 2017-08-14 18:00 | disposition home or self-care (01) ==
LOC: N.EDINP 13:50 → N.ED 13:50 → N.TELEN 17:07
PROVIDERS: ADMIT Internal Medicine; ATTEND Internal Medicine

== ENCOUNTER 2019-01-20 13:19 | Observation (INO) ==
[2019-01-20] MEDS ORDERED: ASPIRIN 325 MG TABLET PO STA (13:37)
[2019-01-20 14:04] LABS: Basophils # 0.1 10*3/uL (0.0-0.2); Basophils % 0.6 % (0.0-0.8); Eosinophils # 0.1 10*3/uL (0.0-0.87); Eosinophils % 0.6 % (0.00-10.9); Hematocrit 45.1 VOL% (35.7-47.0); Hemoglobin 14.1 GM/DL (12.0-16.0); Immature Granulocytes % 0.3 %; Immature Granulocytes Absolute 0.03 #; Lymphocytes # 3.2 10*3/uL (1.4-4.0); Lymphocytes % 29.6 % (21.3-54.2); Mean Corpuscular HGB Conc 31.3 GM/DL (32-36); Mean Corpuscular Volume 98.7 FL (87-102); Mean Platelet Volume 10.1 FL (9.6-12.0); Monocytes % 7.3 % (1.7-12.7); Neutrophils % 61.6 % (38.7-73.9); Platelet Count 263 T/CUMM (130-400); Red Blood Count 4.57 MC/CUMM (3.8-5.5); Red Cell Distribution Width 13.2 % (9.3-17.3); White Blood Count 10.8 T/CUMM (4-12)
[2019-01-20 14:31] LABS: Albumin 3.5 G/DL (3.4-5.0); Bilirubin,Total 0.5 MG/DL (0.2-1.0); Calcium 9.3 MG/DL (8.5-10.1); Osmolality,Calculated 285.1 MOS/KG (273-304); Total Protein 7.9 G/DL (6.4-8.3)
[2019-01-20] MEDS ORDERED: ONDANSETRON 4 MG/2 ML VIAL ONE (14:59)
[2019-01-20] MEDS ORDERED: ONDANSETRON 4 MG/2 ML VIAL IV STA (15:02)
[2019-01-20 15:07] LABS: Apearance,Urine CLEAR (Clear); Bilirubin,Urine Negative (Negative); Blood, Urine Negative (Negative); Glucose,Urine (UA) Negative (Negative); Ketones,Urine Negative (Negative); Mucus,Urine Occasional /LPF (Occasional); Nitrite,Urine Negative (Negative); Protein,Urine Negative; RBC,Urine 1 /HPF (0-4); Squamous Epithelial Cell,Urine Occasional /HPF (0-10); Urine Color Yellow (Yellow); Urine Specific Gravity 1.023 (1.001-1.035); Urine Urobilinogen < 2.0 EU/DL (0.2-1.0); WBC,Urine 7 /HPF (0-6)
[2019-01-20 15:26] LABS: PT Patient Result 21.2 SECS
[2019-01-20] MEDS ORDERED: ACETAMINOPHEN 325 MG TABLET PO PRN (16:28)
[2019-01-20] MEDS ORDERED: guaiFENesin/DM ER 600-30 MG TABLET PO PRN (16:28)
[2019-01-20] MEDS ORDERED: ZALEPLON 5 MG CAPSULE PO PRN (16:28)
[2019-01-20] MEDS ORDERED: ONDANSETRON 4 MG/2 ML VIAL IV PRN (16:28)
[2019-01-20] MEDS ORDERED: DOCUSATE SODIUM 100 MG CAPSULE PO PRN (16:28)
[2019-01-20] MEDS ORDERED: traZODone 50 MG TABLET PO PRN (16:28)
[2019-01-20] MEDS ORDERED: WARFARIN 2.5 MG TABLET PO SCH (18:00)
[2019-01-20] MEDS: cefTRIAXone 1,000 MG in SYRINGE 1 EACH IV SCH (19:27)
[2019-01-20] MEDS: METOPROLOL TARTRATE 25 MG TABLET PO SCH (20:54)
[2019-01-21 05:59] LABS: Basophils # 0.1 10*3/uL (0.0-0.2); Basophils % 0.7 % (0.0-0.8); Eosinophils # 0.1 10*3/uL (0.0-0.87); Eosinophils % 1.3 % (0.00-10.9); Hematocrit 43.9 VOL% (35.7-47.0); Hemoglobin 14.1 GM/DL (12.0-16.0); Immature Granulocytes % 0.4 %; Immature Granulocytes Absolute 0.03 #; Lymphocytes # 2.5 10*3/uL (1.4-4.0); Lymphocytes % 29.6 % (21.3-54.2); Mean Corpuscular HGB Conc 32.1 GM/DL (32-36); Mean Corpuscular Volume 98.4 FL (87-102); Mean Platelet Volume 10.5 FL (9.6-12.0); Platelet Count 262 T/CUMM (130-400); Red Blood Count 4.46 MC/CUMM (3.8-5.5); Red Cell Distribution Width 13.2 % (9.3-17.3); White Blood Count 8.5 T/CUMM (4-12)
[2019-01-21 06:42] LABS: INR 2.1
[2019-01-21 06:45] LABS: PT Patient Result 22.2 SECS
[2019-01-21 06:48] LABS: Alanine Aminotransferase 22 U/L (13-56); Albumin 3.2 G/DL (3.4-5.0); Alkaline Phosphatase 114 U/L (45-117); Aspartate Amino Transferase 24 U/L (0-37); Bilirubin,Total < 0.39 MG/DL (0.2-1.0); Blood Urea Nitrogen 16 MG/DL (7-18); Calcium 8.9 MG/DL (8.5-10.1); Glucose 82 MG/DL (74-106); HDL Cholesterol 50 MG/DL (40-60); Osmolality,Calculated 282.1 MOS/KG (273-304); Risk Ratio 3.28; Total Protein 7.3 G/DL (6.4-8.3); Triglycerides 146 MG/DL (2-150); VLDL CHOLESTEROL 29.2 MG/DL
[2019-01-21] MEDS: METOPROLOL TARTRATE 25 MG TABLET PO SCH (09:23)
[2019-01-21] MEDS ORDERED: CHOLECALCIFEROL 1,000 UNIT TABLET PO SCH (12:00)
[2019-01-21] MEDS: cefTRIAXone 1,000 MG in SYRINGE 1 EACH IV SCH (16:30)
[2019-01-21 16:55] VITALS: BP 113/73
== END 2019-01-21 16:52 | disposition home or self-care (01) ==
LOC: N.ED 13:19 → N.EDINP 13:19 → N.5E 18:00
PROVIDERS: ADMIT Family Medicine; ATTEND Family Medicine

== ENCOUNTER 2021-12-12 01:23 | Inpatient (IN) ==
[2021-12-12] MEDS ORDERED: HYDROmorphone 1 MG/1 ML SYRINGE IV STA ×2 (04:09→05:02)
[2021-12-12] MEDS ORDERED: ONDANSETRON 4 MG/2 ML VIAL IV STA (04:10)
[2021-12-12 04:33] LABS: INR 1.4; PT Patient Result 15.1 SECS (10.5-12.0)
[2021-12-12 07:38] LABS: Basophils % 0.2 % (0.0-0.8); Hematocrit 38.2 VOL% (35.7-47.0); Hemoglobin 12.5 GM/DL (12.0-16.0); Immature Granulocytes % 0.2 %; Immature Granulocytes Absolute 0.02 #; Lymphocytes # 1.9 10*3/uL (1.4-4.0); Lymphocytes % 21.1 % (21.3-54.2); Mean Corpuscular HGB Conc 32.7 GM/DL (32-36); Mean Platelet Volume 10.4 FL (9.6-12.0); Monocytes # 1.2 10*3/uL (0.11-0.8); Monocytes % 12.7 % (1.7-12.7); Neutrophils % 65.8 % (38.7-73.9); Platelet Count 183 T/CUMM (130-400); Red Blood Count 4.02 MC/CUMM (3.8-5.5); White Blood Count 9.1 T/CUMM (4-12)
[2021-12-12 07:57] LABS: Albumin 3.3 G/DL (3.4-5.0); Bilirubin,Total 0.4 MG/DL (0.20-1.00); Calcium 8.9 MG/DL (8.5-10.1); Osmolality,Calculated 276.8 MOS/KG (273-304); Potassium 4.8 MMOL/L (3.5-5.1); Total Protein 6.9 G/DL (6.4-8.2)
[2021-12-12] MEDS: METOPROLOL TARTRATE 25 MG TABLET PO SCH ×2 (08:46→21:11)
[2021-12-12] MEDS: SODIUM CHLORIDE 0.9% 1,000 ML IV SCH ×2 (10:23→20:20)
[2021-12-12] MEDS: ONDANSETRON 4 MG/2 ML VIAL IV PRN ×2 (10:24→16:14)
[2021-12-12 13:08] LABS: Bilirubin,Urine Negative (Negative); Blood, Urine Negative (Negative); Glucose,Urine (UA) Negative (Negative); Ketones,Urine Negative (Negative); Nitrite,Urine Negative (Negative); Protein,Urine Negative (Negative); Urine Appearance Clear (Clear); Urine Color Yellow (Yellow); Urine pH 5.5 (4.5-8.0)
[2021-12-12 13:09] LABS: Urine Urobilinogen 0.2 eU/dL (<2.0)
[2021-12-12 13:11] LABS: Bacteria,Urine Occasional /HPF (Few); Mucus,Urine Occasional /LPF (Occasional); RBC,Urine 10 /HPF (0-4); Squamous Epithelial Cell,Urine Occasional /HPF (0-10)
[2021-12-12] MEDS ORDERED: WARFARIN 2.5 MG TABLET PO SCH (18:00)
[2021-12-12] MEDS: HYDROmorphone 1 MG/1 ML SYRINGE IV PRN (23:25)
[2021-12-13] MEDS: HYDROmorphone 1 MG/1 ML SYRINGE IV PRN ×3 (02:46→20:21)
[2021-12-13] MEDS ORDERED: PHENOL 1.4% THROAT SPRAY 177 ML BOTTLE PO PRN ×2 (02:48→02:50)
[2021-12-13 04:40] LABS: Basophils % 0.4 % (0.0-0.8); Eosinophils % 0.6 % (0.00-10.9); Hemoglobin 12.3 GM/DL (12.0-16.0); Immature Granulocytes % 0.3 %; Immature Granulocytes Absolute 0.02 #; Lymphocytes # 1.8 10*3/uL (1.4-4.0); Lymphocytes % 25.2 % (21.3-54.2); Mean Corpuscular HGB Conc 31.5 GM/DL (32-36); Mean Platelet Volume 10.1 FL (9.6-12.0); Monocytes # 1.2 10*3/uL (0.11-0.8); Monocytes % 16.3 % (1.7-12.7); Neutrophils % 57.2 % (38.7-73.9); Platelet Count 155 T/CUMM (130-400); Red Blood Count 3.94 MC/CUMM (3.8-5.5); Red Cell Distribution Width 13.1 % (9.3-17.3); White Blood Count 7.1 T/CUMM (4-12)
[2021-12-13 04:53] LABS: Calcium 8.1 MG/DL (8.5-10.1); Osmolality,Calculated 280.4 MOS/KG (273-304); Potassium 3.9 MMOL/L (3.5-5.1)
[2021-12-13 04:54] LABS: INR 1.2; PT Patient Result 13.5 SECS (10.5-12.0)
[2021-12-13 05:20] LABS: Eosinophils 1 % (0-10); Lymphocytes 19 % (20-55); Platelet Estimate Adequate; Total Cells Counted 100
[2021-12-13] MEDS: SODIUM CHLORIDE 0.9% 1,000 ML IV SCH ×2 (05:47→17:34)
[2021-12-13] MEDS: METOPROLOL TARTRATE 25 MG TABLET PO SCH ×2 (08:45→20:21)
[2021-12-13] MEDS: ONDANSETRON 4 MG/2 ML VIAL IV PRN ×4 (09:15→20:40)
[2021-12-13] MEDS: WARFARIN 5 MG TABLET PO SCH (18:14)
[2021-12-14] MEDS: HYDROmorphone 1 MG/1 ML SYRINGE IV PRN ×5 (00:40→21:10)
[2021-12-14] MEDS: ONDANSETRON 4 MG/2 ML VIAL IV PRN ×5 (00:40→21:09)
[2021-12-14] MEDS: SODIUM CHLORIDE 0.9% 1,000 ML IV SCH ×3 (02:58→15:30)
[2021-12-14] MEDS: METOPROLOL TARTRATE 25 MG TABLET PO SCH ×2 (09:00→21:09)
[2021-12-14] MEDS: WARFARIN 5 MG TABLET PO SCH (17:20)
[2021-12-15] MEDS: SODIUM CHLORIDE 0.9% 1,000 ML IV SCH ×2 (00:54→08:59)
[2021-12-15] MEDS: ONDANSETRON 4 MG/2 ML VIAL IV PRN ×3 (03:15→16:08)
[2021-12-15] MEDS: HYDROmorphone 1 MG/1 ML SYRINGE IV PRN ×3 (03:16→12:07)
[2021-12-15] MEDS: METOPROLOL TARTRATE 25 MG TABLET PO SCH ×2 (08:25→20:51)
[2021-12-15] MEDS: POLYETHYLENE GLYCOL POWDER 17 GM PACK PO SCH (13:36)
[2021-12-15] MEDS: ENOXAPARIN 80 MG/0.8 ML SYRINGE SUBCUT SCH ×2 (13:37→23:57)
[2021-12-15 13:59] LABS: PT Patient Result 21.5 SECS (10.5-12.0)
[2021-12-15] MEDS: WARFARIN 5 MG TABLET PO SCH (17:17)
[2021-12-16 05:45] LABS: Basophils % 0.3 % (0.0-0.8); Eosinophils # 0.1 10*3/uL (0.0-0.87); Eosinophils % 2.1 % (0.00-10.9); Hematocrit 37.9 VOL% (35.7-47.0); Hemoglobin 12.3 GM/DL (12.0-16.0); Immature Granulocytes % 0.2 %; Immature Granulocytes Absolute 0.01 #; Lymphocytes % 49.1 % (21.3-54.2); Mean Corpuscular HGB Conc 32.5 GM/DL (32-36); Mean Corpuscular Volume 95.9 FL (87-102); Mean Platelet Volume 10.2 FL (9.6-12.0); Monocytes # 0.8 10*3/uL (0.11-0.8); Monocytes % 13.2 % (1.7-12.7); Neutrophils % 35.1 % (38.7-73.9); Platelet Count 189 T/CUMM (130-400); Red Blood Count 3.95 MC/CUMM (3.8-5.5); Red Cell Distribution Width 12.2 % (9.3-17.3); White Blood Count 6.1 T/CUMM (4-12)
[2021-12-16 05:55] LABS: INR 2.6; PT Patient Result 26.7 SECS (10.5-12.0)
[2021-12-16 07:22] LABS: Eosinophils 4 % (0-10); Lymphocytes 53 % (20-55); Total Cells Counted 100
[2021-12-16 07:23] LABS: Platelet Estimate Normal
[2021-12-16] MEDS: METOPROLOL TARTRATE 25 MG TABLET PO SCH (08:48)
[2021-12-16] MEDS: POLYETHYLENE GLYCOL POWDER 17 GM PACK PO SCH (08:49)
[2021-12-16 11:52] VITALS: BP 137/61
[2021-12-16] MEDS ORDERED: WARFARIN 2.5 MG TABLET PO SCH (18:00)
== END 2021-12-16 12:25 | disposition swing bed (61) | DRG 563 ==
LOC: EDBD → EDUNIT# → N.EDINP 01:23 → N.3E 01:23 → N.ED 01:23 → N.EDINP 06:00 → N.3E 06:17 → SUATTDRO 08:19 → N.CC 08:27 → N.3E 12-14 12:45
PROVIDERS: ADMIT Internal Medicine; ATTEND Internal Medicine